=== PATIENT | male | born 1995 | race Caucasian/White ===

== ENCOUNTER → 2019-01-08 | Outpatient (CLI) | payer OTHER ==
--- NOTE | 2019-01-08 16:58 | PCVCIMAG ---
APPROVED REPORT Study performed: 01/08/2019 14:19:40 EXAM: Comprehensive 2D, Doppler, and color-flow Echocardiogram Patient Location: Echo lab Room #: 3Status: routine BSA: 1.93 HR: 57 bpm Rhythm: NSR,bradtcardia Other Information Study Quality: Good Indications Congenital Heart Disease Hx: Tetralogy of Fallot 2D Dimensions IVSd: 10.40 (7-11mm)LVOT Diam: 20.37 (18-24mm) LVDd: 51.95 mm PWd: 9.42 (7-11mm) LVDs: 37.16 (25-40mm) Left Atrium: 38.85 (27-40mm) LV Single Plane 4CH: 52.83 % LV Single Plane 2CH: 54.84 % Biplane EF: 53.0 % Volumes Left Atrial Volume (Systole) Single Plane 4CH: 45.76 mLSingle Plane 2CH: 57.58 mL Biplane LA Volume: 55.00 mLLA ESV Index: 29.00 mL/m2 Aortic Valve AoV Peak Angel Luis.: 1.45 m/s AO Peak Gr.: 7.21 mmHgLVOT Max P.70 mmHg AO Mean Gr.: 5.13 mmHg AO V2 Mean: 1.06 m/sLVOT Max V: 0.96 m/s AO V2 VTI: 29.68 cm XOCHILT Vmax: 2.15 cm2 Mitral Valve E/A Ratio: 2.1 MV Decel. Time: 137.29 ms MV E Max Angel Luis.: 1.01 m/s MV A Angel Luis.: 0.48 m/s IVRT: 83.04 ms TDI E/Lateral E': 7.77E/Medial E': 10.10 Medial E' Angel Luis.: 0.10 m/s Lateral E' Angel Luis.: 0.13 m/s Pulmonary Valve PV Peak Angel Luis.: 1.01 m/sPV Peak Gr.: 4.06 mmHg Pulmonary Vein P Vein S: 0.31 m/sP Vein A: 0.28 m/s P Vein D: 0.55 m/sP Vein A Dur.: 117.6 msec P Vein S/D Ratio: 0.56 Tricuspid Valve TR Peak Angel Luis.: 2.38 m/s TR Peak Gr.: 22.57 mmHg TV Vmax: 0.71 m/sPA Pressure: 30.00 mmHg Left Ventricle The left ventricle is normal size. 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 There is normal left ventricular wall thickness. Left ventricular systolic function is normal. The left ventricular ejection fraction is within the normal range. LVEF is 55-60%. The left ventricular diastolic function is normal. Right Ventricle The right ventricle is normal size. The right ventricular systolic function is normal. Atria The left atrium size is normal. Right atrium is moderately dilated. Aortic Valve The aortic valve is not well visualized. Possibly bicuspid No aortic regurgitation is present. There is no aortic valvular stenosis. Mitral Valve The mitral valve is normal in structure. Trace mitral regurgitation. No evidence of mitral valve stenosis. Tricuspid Valve The tricuspid valve is normal in structure. Trace to mild tricuspid regurgitation with a PA pressure of 30 mmHg Mild tricuspid regurgitation.. Pulmonic Valve The pulmonary valve is normal in structure. There is no pulmonic valvular regurgitation. Great Vessels The aortic root is normal in size. The ascending aorta is normal in size. IVC is normal in size and collapses >50% with inspiration. Pericardium There is no pericardial effusion. There is no pleural effusion. <Conclusion> Left ventricular systolic function is normal. Probable patch repair of a ruiz-membranous VSD. LVEF is 55-60%. Normal diastolic function The aortic valve is not well visualized. Possibly bicuspid. No aortic regurgitation or stenosis The mitral valve is normal in structure. Trace mitral regurgitation. Trace to mild tricuspid regurgitation with a pulmonary artery pressure of 30 mmHg There is no pulmonic valvular regurgitation. There is no pericardial effusion.
== END | disposition home or self-care (01) ==
LOC: PCVCIMAG 14:06
PROVIDERS: ATTEND Internal Medicine
DX: I07.1 Rheumatic tricuspid insufficiency (principal); Q21.3 Tetralogy of Fallot; E78.5 Hyperlipidemia, unspecified
CPT/HCPCS: 93306